=== PATIENT | male | born 1965 | race Caucasian/White ===

== ENCOUNTER → 2018-09-21 | Outpatient (CLI) | payer OTHER ==
--- NOTE | 2018-09-21 11:10 | XR ---
EXAMINATION TYPE: XR shoulder complete LT DATE OF EXAM: 09/21/2018 CLINICAL HISTORY: Increasing left shoulder pain. TECHNIQUE: Three views of the left shoulder are obtained. COMPARISON: None. FINDINGS: There is no acute fracture/dislocation evident in the left shoulder. There is mild narrowi ng and spurring at acromioclavicular joint. Distal acromion morphology is unremarkable. Glenohumeral joint is maintained. There is old healed fracture posterior left fourth rib. IMPRESSION: As above.
== END | disposition home or self-care (01) ==
LOC: RADXRYALE 10:48
PROVIDERS: ATTEND Internal Medicine
DX: M25.712 Osteophyte, left shoulder (principal)

== ENCOUNTER → 2021-10-29 | Outpatient (CLI) | payer OTHER ==
--- NOTE | 2021-10-29 19:49 | XR ---
EXAMINATION TYPE: XR lumbosacral spine 5 views DATE OF EXAM: 10/29/2021 Comparison: None Clinical History: 56-year-old male [id number] SCIATICA, RT SIDE Findings: Mild multilevel degenerative disc disease and endplate spondylosis. There is facet arthropathy throug hout. Trace grade 1 anterolisthesis L3-L4. Otherwise, alignment is maintained and vertebral body heig hts are preserved. No pars interarticularis defect seen. There is a dextroconvex scoliosis. Cholecyst ectomy clips. Impression: 1. Dextroconvex scoliosis of the lumbar spine. 2. Facet arthropathy throughout. Degenerative trace grade 1 anterolisthesis L3-L4. 3. Mild multilevel degenerative disc disease.
== END | disposition home or self-care (01) ==
LOC: RADXRYALE 13:09
PROVIDERS: ATTEND Internal Medicine
DX: M41.86 Other forms of scoliosis, lumbar region (principal); M54.31 Sciatica, right side
CPT/HCPCS: 72110